=== PATIENT | female | born 2005 | race African-American/Black ===

== ENCOUNTER 2025-02-15 21:24 | Emergency (ER) | payer SELFPAY ==
[2025-02-15 22:22] LABS: #Basophils Less than 0.03 10x3/uL (0.0-0.2); #Eosinophils 0.08 10x3/uL (0.0-0.5); #Monocytes 0.52 10x3/uL (0.0-1.1); #Neutrophils 5.65 10x3/uL (1.5-8.4); %Basophils 0.2 % (0.0-2.0); %Eosinophils 0.9 % (0.0-6.0); %Lymphocytes 26.3 % (18.0-47.0); %Monocytes 6.1 % (0.0-10.0); %Neutrophils 66.1 % (40.0-75.0); Hematocrit 36.3 % (34.9-44.5); Hemoglobin 11.4 g/dL (12.0-15.5); Mean Corpuscular Hemoglobin 25.5 pg (27.0-33.0); Mean Corpuscular Volume 81.2 fL (81.6-98.3); Platelet Count 298 10x3/uL (150-450); Red Blood Cell (RBC) Count 4.47 10x6/uL (3.90-5.03); White Blood Cell (WBC) Count 8.55 10x3/uL (3.5-10.5)
[2025-02-15 22:28] LABS: BHCG - Serum Negative (NEGATIVE); Pregs Control Bar Appear? YES (CONTROL BAR)
[2025-02-15 22:29] LABS: Pregs Control Background? CLEAR/WHITE (CLR/WHITE)
[2025-02-15 22:35] LABS: ALT (SGPT) 9 U/L (Less than 34); AST (SGOT) 14 U/L (11-34); Albumin 3.5 g/dL (3.1-4.5); Alkaline Phosphatase 89 U/L (40-100); Anion Gap 11 mmol/L (10-20); BUN (Urea Nitrogen) 8 mg/dL (8.4-21.0); Bilirubin, Total 0.2 mg/dL (0.3-1.2); Calc. Creatinine Clearance 0 mL/min (70-130); Calcium 9.1 mg/dL (7.8-10.44); Carbon Dioxide 26 mmol/L (22-29); Chloride 108 mmol/L (98-107); Globulin 4.2 g/dL (2.4-3.5); Glucose 118 mg/dL (70-105); Lipase 24 U/L (8-78); Potassium 3.8 mmol/L (3.5-5.1); Sodium 141 mmol/L (136-145)
[2025-02-15 22:44] LABS: Glucose, Urine (Dipstick) Normal (Negative); Leukocyte Negative (Negative); Protein, Urine (Dipstick) Negative (Neg-Trace); Specific Gravity, Urine 1.015 (1.005-1.030)
[2025-02-15 22:52] LABS: Bacteria/HPF None Seen HPF (None Seen); CAUTI Indications for Culture Dysuria,urgency,freq; RBC/HPF None Seen HPF (0-3); WBC/HPF None Seen HPF (0-3)
[2025-02-15 22:53] LABS: Urine Culture Reflex No No
[2025-02-15] MEDS ORDERED: Dicyclomine 20 MG TAB ONE (23:04)
[2025-02-16] MEDS ORDERED: Ketorolac Tromethamine 30 MG (1 mL) VIAL ONE (00:21)
== END 2025-02-16 00:29 | disposition home or self-care (01) ==
LOC: CSHERS 21:24
DX: R10.A2 Flank pain, left side (principal); E66.9 Obesity, unspecified
CPT/HCPCS: 36416; 74176; 80053; 81001; 83690; 84703; 85025; 96372; J1885